=== PATIENT | female | born 1960 | race Caucasian/White ===

== ENCOUNTER 2019-01-07 16:43 | Emergency (ER) | payer OTHER ==
[~2019-01-07] VITALS: Ht 147.3 cm; Wt 79.8 kg
[2019-01-07 16:50] VITALS: Ht 147.3 cm; Wt 79.8 kg
[2019-01-07 18:21] VITALS: BP 147/68
== END 2019-01-07 18:21 | disposition home or self-care (01) ==
LOC: ED 16:43
DX: S80.861A Insect bite (nonvenomous), right lower leg, initial encounter (principal); I10 Essential (primary) hypertension; E11.9 Type 2 diabetes mellitus without complications; W57.XXXA Bitten or stung by nonvenomous insect and other nonvenomous arthropods, initial encounter; Y93.89 Activity, other specified; Y92.89 Other specified places as the place of occurrence of the external cause; Y99.8 Other external cause status
CPT/HCPCS: 82962

== ENCOUNTER 2019-01-16 15:48 | Emergency (ER) | payer OTHER ==
[~2019-01-16] VITALS: Ht 147.3 cm; Wt 78.0 kg
[2019-01-16 16:06] VITALS: Ht 147.3 cm; Wt 78.0 kg
[2019-01-16 18:02] LABS: BASOPHIL % 0.2 % (0-2); PLATELET COUNT 117 x10^3mcL (130-400); RED CELL DISTRIBUTION WIDTH 14.5 % (11.5-14.5)
[2019-01-16 18:16] LABS: CALCIUM 8.9 mg/dL (8.5-10.1); CREATININE SERUM 2.2 mg/dL (0.6-1.0); POTASSIUM SERUM 4.7 mmol/L (3.5-5.1)
[2019-01-16 18:20] LABS: BILIRUBIN TOTAL 0.33 mg/dL (0.20-1.00); TOTAL PROTEIN, SERUM 7.7 g/dL (6.4-8.2)
[2019-01-16 18:36] LABS: ALBUMIN 3.3 g/dL (3.4-5.0)
[2019-01-16 19:06] VITALS: BP 121/69
== END 2019-01-16 19:06 | disposition home or self-care (01) ==
LOC: ED 15:48
PROVIDERS: Emergency Medicine
DX: T78.49XA Other allergy, initial encounter (principal); N28.9 Disorder of kidney and ureter, unspecified; R06.02 Shortness of breath; R11.2 Nausea with vomiting, unspecified; I10 Essential (primary) hypertension; E11.9 Type 2 diabetes mellitus without complications; X58.XXXA Exposure to other specified factors, initial encounter
CPT/HCPCS: J1100; J1200; J2405; J3490; J7030

== ENCOUNTER 2019-01-21 16:01 | Emergency (ER) | payer OTHER ==
[~2019-01-21] VITALS: Ht 147.3 cm; Wt 76.2 kg
[2019-01-21 16:20] VITALS: Ht 147.3 cm; Wt 76.2 kg
[2019-01-21 17:30] LABS: BASOPHIL % 0.5 % (0-2); PLATELET COUNT 183 x10^3mcL (130-400); RED CELL DISTRIBUTION WIDTH 14.4 % (11.5-14.5)
[2019-01-21 17:32] LABS: UA SPECIFIC GRAVITY 1.025 (1.005-1.035); microscopic required? YES; urine erythrocyte TRACE (NEGATIVE)
[2019-01-21 17:39] LABS: AMPHETAMINE QUAL UR NONE DETECTED (See below)
[2019-01-21 17:48] LABS: CALCIUM 9.4 mg/dL (8.5-10.1); CARBON DIOXIDE 22.4 mmol/L (21-32); CHLORIDE SERUM 105 mmol/L (98-107); CREATININE SERUM 1.2 mg/dL (0.6-1.0); GFR1 49 mL/min; GLUCOSE SERUM 239 mg/dL (74-106); POTASSIUM SERUM 5.3 mmol/L (3.5-5.1); SODIUM SERUM 137 mmol/L (136-145)
[2019-01-21 18:02] LABS: ALKALINE PHOSPHATASE 80 U/L (46-116); ALT/SGPT 60 U/L (14-59); AST/SGOT 30 U/L (15-37); BILIRUBIN TOTAL 0.4 mg/dL (0.20-1.00); LIPASE 158 IU/L (73-393); MAGNESIUM 1.7 mg/dL (1.8-2.4); T4(THYROXINE) 9.1 ug/dL (4.7-13.3); TOTAL PROTEIN, SERUM 7.1 g/dL (6.4-8.2)
[2019-01-21 18:03] LABS: ALBUMIN 3.1 g/dL (3.4-5.0)
[2019-01-21 20:44] VITALS: BP 118/74
== END 2019-01-21 20:44 | disposition home or self-care (01) ==
LOC: ED 16:01
PROVIDERS: Emergency Medicine
DX: E86.0 Dehydration (principal); R53.1 Weakness; E11.22 Type 2 diabetes mellitus with diabetic chronic kidney disease; I12.9 Hypertensive chronic kidney disease with stage 1 through stage 4 chronic kidney disease, or unspecified chronic kidney disease; N18.3 Chronic kidney disease, stage 3 (moderate); E66.9 Obesity, unspecified; Z68.35 Body mass index [BMI] 35.0-35.9, adult
CPT/HCPCS: G0480; J7030; Q0092

== ENCOUNTER 2020-03-17 21:19 | Emergency (ER) | payer OTHER ==
[~2020-03-17] VITALS: Ht 149.9 cm; Wt 76.2 kg
[2020-03-17 21:25] VITALS: Ht 149.9 cm; Wt 76.2 kg
[2020-03-18 00:13] LABS: PLATELET COUNT 194 x10^3mcL (130-400)
[2020-03-18 01:24] LABS: CALCIUM 8.9 mg/dL (8.5-10.1); CARBON DIOXIDE 24.3 mmol/L (21-32); CREATININE SERUM 1.8 mg/dL (0.6-1.0); POTASSIUM SERUM 5.1 mmol/L (3.5-5.1)
[2020-03-18 01:28] LABS: ALBUMIN 3.7 g/dL (3.4-5.0); BILIRUBIN TOTAL 0.5 mg/dL (0.20-1.00); MAGNESIUM 1.6 mg/dL (1.8-2.4); TOTAL PROTEIN, SERUM 7.9 g/dL (6.4-8.2)
[2020-03-18 02:18] VITALS: BP 132/62
== END 2020-03-18 02:18 | disposition home or self-care (01) ==
LOC: ED 21:19
PROVIDERS: Emergency Medicine
DX: T50.905A Adverse effect of unspecified drugs, medicaments and biological substances, initial encounter (principal); E86.0 Dehydration; N17.9 Acute kidney failure, unspecified; Y92.89 Other specified places as the place of occurrence of the external cause
CPT/HCPCS: J1200; J7030

== ENCOUNTER 2020-03-19 19:08 | Emergency (ER) | payer OTHER ==
[~2020-03-19] VITALS: Ht 152.4 cm; Wt 75.3 kg
[2020-03-19 19:24] VITALS: Ht 152.4 cm; Wt 75.3 kg
[2020-03-19 20:35] LABS: BASOPHIL % 0.4 % (0-2); PLATELET COUNT 166 x10^3mcL (130-400); RED CELL DISTRIBUTION WIDTH 14.5 % (11.5-14.5)
[2020-03-19 20:52] LABS: CARBON DIOXIDE 23.4 mmol/L (21-32); CREATININE SERUM 1.8 mg/dL (0.6-1.0); POTASSIUM SERUM 5.4 mmol/L (3.5-5.1)
[2020-03-19 20:57] LABS: BILIRUBIN TOTAL 0.4 mg/dL (0.20-1.00); TOTAL PROTEIN, SERUM 7.4 g/dL (6.4-8.2)
[2020-03-19 20:58] LABS: ALBUMIN 3.2 g/dL (3.4-5.0)
[2020-03-19 21:57] VITALS: BP 122/83
== END 2020-03-19 21:57 | disposition home or self-care (01) ==
LOC: ED 19:08
PROVIDERS: Specialist
DX: I12.9 Hypertensive chronic kidney disease with stage 1 through stage 4 chronic kidney disease, or unspecified chronic kidney disease (principal); R19.7 Diarrhea, unspecified; E11.22 Type 2 diabetes mellitus with diabetic chronic kidney disease; N18.9 Chronic kidney disease, unspecified; E87.5 Hyperkalemia
CPT/HCPCS: J1885; Q0162